=== PATIENT | male | born 1925 | race African-American/Black ===

== ENCOUNTER 2016-09-07 09:32 | Inpatient (IN) | payer MEDICARE, OTHER ==
--- NOTE | ~2016-09-07 | CO ---
Unit #: [id number] #: [id number] Patient: FERCHO RYAN [id number] [address] [place], [place] [address] [id number] I MR#: [id number] NAME: FERCHO RYAN ROOM: 227 Age: 89 Sex: M Admission Date: 09/07/2016 : 1925 Attending Physician: Adilene Gutierrez M.D. Primary Care Physician: No Primary Care Physician CONSULTATION REPORT CHIEF COMPLAINT Most likely stage 4 prostate cancer, widespread disease in the bone and the lymph node. HISTORY OF PRESENT ILLNESS This 89-year-old male, who came to the hospital with significant back pain, unable to walk. He has decreased p.o. intake, decline in performance status. He has difficulty urinating for a couple of years. He has not seen any physician recently. Last year he had right upper extremity fracture requiring titanium miguel. At present, he is complaining of significant pain. The patient had a CT of the abdomen and pelvis on 09/07/2016. There is a 7.3 x 6.7 cm enlargement of the prostate. There is a retroperitoneal lymph node measuring 2.4 x 1.2 cm. In the right inguinal area, there is a 4.5 x 3.7 cm mass. He had a CT of the chest on 09/07/2016. Again, widespread bony mets. There are no lung nodules. Today, CBC shows WBC 4.3, hemoglobin 7.6, MCV 94, platelet 157, creatinine 2.2. Alkaline phos. 525. At present, he is sleepy because of pain medication. REVIEW OF SYSTEMS CONSTITUTIONAL: No fever, no chills, no sweats, no weight loss. EYES: No visual symptoms. EARS, NOSE AND THROAT: There is no runny nose or sore throat or difficulty hearing. CARDIOVASCULAR: No chest pain. No shortness of breath. No palpitations. No orthopnea. No PND. RESPIRATORY: No cough. No wheezing. No hemoptysis. GASTROINTESTINAL: No nausea, vomiting, diarrhea, constipation, hematochezia or melena. GENITOURINARY: No urinary frequency, hesitancy or urgency. No blood in the urine. MUSCULOSKELETAL: No muscle or joint pain. NEUROLOGIC: No headache. No numbness or tingling. No weakness. No seizure. PSYCHIATRIC: No anxiety, depression or mood disturbance. ENDOCRINE: No excessive urination or thirst. DERMATOLOGIC: No rash or change in the skin. ALLERGIC/IMMUNOLOGIC: No symptoms. HEMATOLOGIC/LYMPHATIC: Denies any symptoms. Unit #: [id number] #: [id number] Patient: FERCHO RYAN Significant decline in performance status, bone pain, urinary obstruction. PAST MEDICAL HISTORY 1. Now most likely stage 4 prostate cancer with anemia. 2. Renal failure. ALLERGIES None. SOCIAL HISTORY No smoking, no alcohol, no drugs. He is a retired dancer. SURGICAL HISTORY Right upper extremity fracture with titanium miguel placed. FAMILY HISTORY Negative for cancer. PHYSICAL EXAMINATION GENERAL: Patient is comfortable. ECOG is 0. The patient is pleasant. VITAL SIGNS: Afebrile. O2 sat 100%. Pulse 90, respiratory rate 20, blood pressure 152/81. HEENT: Moist mucosa. Pupils equally reactive to light. Extraocular muscles intact. Sclerae anicteric. No obvious bleeding from nasal mucosa or oral mucosa. Scalp normal. Hearing normal. NECK: No JVD. No lymphadenopathy. LYMPHATIC/HEMATOLOGIC: There is no palpable adenopathy in the neck, axilla or inguinal area. CARDIOVASCULAR: S1, S2. Regular rate and rhythm. No S3 or S4. RESPIRATORY: Chest symmetrical, normal. Clear to auscultation bilaterally. No wheezes, no rales, no rhonchi. No dullness to percussion. ABDOMEN/GASTROINTESTINAL: Abdomen is soft, nontender, nondistended. No hepatosplenomegaly. EXTREMITIES: There is no clubbing, no cyanosis, no edema. No varicose veins. NEUROLOGICAL: Patient is alert, awake and oriented x3. Cranial nerves II-XII are intact. Sensory grossly intact. Motor is 4/5 in all four extremities. Gait is normal. Station is normal. Language is normal. Memory is normal. DTRs +2 in all four extremities. MUSCULOSKELETAL: No joint swelling. No bony tenderness. No muscle tenderness. SKIN: No petechiae, no rash, no ecchymosis. PSYCHIATRIC: No anxiety. No delusions or hallucinations. There is no agitation. Eye contact is normal. Affect is appropriate. There is no flight of ideas. ASSESSMENT AND PLAN This 89-year-old male has the following active issues: 1. Prostate cancer: Patient has widespread bony mets. He has a very enlarged prostate causing obstruction and renal failure. He has significant lymphadenopathy. I had an extensive discussion with patient's , who is from [place], and family members. I will get CT guided biopsy of the right inguinal mass. Will ask urologist to see regarding his obstruction leading to renal failure. Will check PSA level. Will discuss with the family again. 2. Anemia: Will check iron studies. 3. Renal: This is most likely due to obstruction. It will improve. 4. (1) : Patient has decline in performance status. Will Unit #: [id number] #: [id number] Patient: FERCHO RYAN work with the family. In the future, I may consider giving him Casodex, Zometa, Lupron. This all depends on the patient and the family. Dictated by... Sam Priest/boom TD: 09/08/2016 13:22 JOB #: [id number] CONSULTATION REPORT Page 1 of 1 X Isabel Molina MD CONSULTATION REPORT
--- NOTE | ~2016-09-07 | CT55 ---
[facility] A Service of [facility] & [facility] RADIOLOGY TEXT RESULTS PATIENT: FERCHO RYAN LOCATION: C2A 227-01 : [birth year] UNIT #: [id number] AGE: [address]: Adilene Gutierrez MD SEX: M ORDER DR: [id number] [facility] [address] [facility]. [place], [place] [address] [id number] I MR#: [id number] Acc #: [id number] NAME: FERCHO RYAN : 1925 SEX: M STUDY DATE/TIME: 09/07/2016 17:25 UNIT: [facility] ROOM: [facility] STUDY DESCRIPTION: CT Chest W Con Attending Physician: Adilene Gutierrez M.D. Referring Physician: Alex Self Referred Ordering Physician: Adilene Gutierrez M.D. Primary Care Physician: No Primary Care Physician MEDICAL IMAGING REPORT This report is preliminary unless electronic signature is present EXAM CT chest with contrast. INDICATIONS Low back pain. Pain radiating down to bilateral lower extremities for 2 weeks. Upper back and chest pain. Metastatic disease at L5. TECHNIQUE CT of the chest with IV contrast (100 mL Isovue-370 IV contrast). Coronal and sagittal reconstructions were obtained. This CT exam was performed with one or more of the following radiation dose reduction techniques: automatic exposure control, adjustment of mA and/or kV according to patient size, and iterative reconstruction. COMPARISON Lumbar spine radiographs dated 09/07/[address] abdomen and pelvis dated 09/07/2016. FINDINGS No pathologically enlarged mediastinal or hilar lymph nodes. No pericardial or pleural effusion. There is a small pleural nodule in the anterior right hemithorax measuring 0.6 cm. There is some linear atelectasis in the left lower lobe. There is diffuse osseous metastatic disease throughout the axial skeleton. No evidence of a pathologic fracture. There is an expansile metastatic focus in the left posterolateral ninth rib measuring 3.5 x 2.8 cm. Several other expansile rib lesions are noted. IMPRESSION 1. Development of diffuse osseous metastatic disease throughout the axial skeleton. 2. Small 6-mm pleural nodule in the anterior right hemithorax is STS. [facility] A Service of [facility] & [facility] RADIOLOGY TEXT RESULTS PATIENT: FERCHO RYAN LOCATION: [place] [address] : [birth year] UNIT #: [id number] AGE: [address]: Adilene Gutierrez MD SEX: M ORDER DR: indeterminate. Dictated by... Bob Culver M.D. THIS IS AN ELECTRONICALLY VERIFIED REPORT Bob Culver M.D. at 09/07/2016 9:46 PM CITLALY/roc TD: 09/07/2016 18:42 JOB #: [id number] MEDICAL IMAGING REPORT Page 1 of 1 COPY
--- NOTE | ~2016-09-07 | CT2 ---
[facility] A Service of [facility] & [facility] RADIOLOGY TEXT RESULTS PATIENT: FERCHO RYAN LOCATION: C2A 227-01 : [birth year] UNIT #: [id number] AGE: [address]: Adilene Gutierrez MD SEX: M ORDER DR: [id number] [facility] [address] [facility]. [place], [place] [address] [id number] I MR#: [id number] Acc #: [id number] NAME: FERCHO RYAN : 1925 SEX: M STUDY DATE/TIME: 09/07/2016 17:25 UNIT: C2A ROOM: 227 STUDY DESCRIPTION: CT Abd and Pelv W Cont Attending Physician: Adilene Gutierrez M.D. Referring Physician: Alex Self Referred Ordering Physician: Adilene Gutierrez M.D. Primary Care Physician: No Primary Care Physician MEDICAL IMAGING REPORT This report is preliminary unless electronic signature is present EXAM Abdomen and pelvis CT with contrast HISTORY Low back pain radiating to both lower extremities for the past 2 weeks with upper back and abdominal pain. Abnormal lumbar vertebrae on plain films. TECHNIQUE Axial images were obtained with intravenous contrast. 100 mL of Isovue was used. This CT exam was performed with one or more of the following radiation dose reduction techniques: automatic control, adjustment of mA and/or kV according to patient size, and iterative reconstruction. FINDINGS Multiple well-circumscribed small low-density liver lesions are seen consistent with simple hepatic cysts. No suspicious liver masses are seen. There is also a small cyst or hemangioma in the mid spleen measuring 1 cm in diameter. The kidneys, adrenals and pancreas are unremarkable. Mildly prominent retroperitoneal lymph nodes are seen to the left of the aorta. The largest measures 2.4 x 1.2 cm. No distended bowel loops are seen. The prostate gland is markedly enlarged irregular and lobular. It measures approximately 7.3 x 6.7 cm in transverse diameter. Additionally, there is mass in the right lower quadrant located between the bladder and the right common femoral artery just below the cecum. It measures 4.5 x 3.7 cm in transverse diameter. The bony architecture is markedly abnormal. There are multiple sclerotic lesions seen throughout the spine, sacrum and both proximal femurs. Constellation of findings is most suggestive of prostate cancer with widespread metastatic disease. No retropulsed bone fragments are seen back into the spinal canal. No definite pathologic fractures are noted. IMPRESSION STS. [facility] A Service of [facility] RADIOLOGY TEXT RESULTS PATIENT: FERCHO RYAN LOCATION: C2A 227-01 : [birth year] UNIT #: [id number] AGE: [address]: Adilene Gutierrez MD SEX: M ORDER DR: Widespread osteoblastic lesions throughout the skeleton consistent with widespread metastatic prostate cancer. The prostate gland is markedly enlarged and lobular and there is an additional soft tissue mass in the right side of the pelvis located just lateral to the bladder that is suspicious for a metastatic adenopathy from prostate cancer. There is a mildly prominent retroperitoneal lymph node to the left of the abdominal aorta also suspicious. Dictated by... Kameron Fernandez M.D. THIS IS AN ELECTRONICALLY VERIFIED REPORT Kameron Fernandez M.D. at 09/09/2016 12:41 PM HEATHER/dioni TD: 09/07/2016 18:51 JOB #: [id number] MEDICAL IMAGING REPORT Page 1 of 1 COPY
--- NOTE | ~2016-09-07 | EKG ---
PATIENT: FERCHO RYAN UNIT #: [id number] Ventricular Rate: 103 BPM Atrial Rate: 103 BPM P-R Interval: 190 ms QRS Duration: 84 ms Q-T Interval: 342 ms QTC Calculation(Bezet): 448 ms P Underwood: 49 degrees Calculated R Underwood: -30 degrees Calculated T Underwood: 60 degrees Diagnosis Line: Sinus tachycardia with occasional Premature Diagnosis Line: ventricular complexes Diagnosis Line: Left axis deviation Diagnosis Line: Abnormal ECG Diagnosis Line: When compared with ECG of 05-FEB-2016 16:12, Diagnosis Line: Premature ventricular complexes are now Present Diagnosis Line: NH interval has decreased Diagnosis Line: Vent. rate has increased BY 41 BPM Diagnosis Line: Nonspecific T wave abnormality has replaced Diagnosis Line: inverted T waves in Anterior leads Diagnosis Line: Confirmed by FRIDA RHOADES MD ([id number]) on 09/08/2016 Diagnosis Line: 10:38:11 AM INTERPRETING MD: VERONA MARTINES
--- NOTE | ~2016-09-07 | CO ---
Unit #: [id number] #: [id number] Patient: FERCHO RYAN [id number] [address] [address] [id number] I MR#: [id number] NAME: FERCHO RYNA ROOM: 227 Age: 89 Sex: M Admission Date: 09/07/2016 : 1925 Attending Physician: Adilene Gutierrez M.D. Primary Care Physician: No Primary Care Physician Consultation Date: 09/08/2016 CONSULTATION REPORT REASON FOR CONSULTATION Metastatic prostate cancer, urinary retention, urinary tract infection. HISTORY This 89-year-old man was admitted yesterday with a chief complaint of back pain described as starting 4 days before admission. According to his son, he has been struggling for 10 days or so with walking, and according to his , he has had difficulty with urinary frequency and urinary incontinence for weeks to months. He himself is just complaining of back pain, in bed and cannot seem to get comfortable. He has been seen by oncology with evaluation, as noted below. He has no prior urologic history. PAST MEDICAL HISTORY Limited to arthritis, anemia, grade 1 diastolic dysfunction. SURGERIES Left arm surgery, right humeral nail January 2016. MEDICATIONS Admission medications - none. He has been started on Rocephin. ALLERGIES None known. FAMILY HISTORY Negative for prostate cancer. SOCIAL HISTORY Never smoked. Does not use alcohol or drugs. . REVIEW OF SYSTEMS Difficult due to patient's pain but absence of weakness, numbness or tingling of lower extremities significant. No headache or visual changes documented elsewhere. PHYSICAL EXAMINATION GENERAL: On examination, patient is very uncomfortable, thin, awake, alert, responsive. HEENT: Unremarkable. LUNGS: Clear. CARDIAC: Rate and rhythm regular. ABDOMEN: Abdomen is thin, soft. Palpable iliac node and massive bladder distension. : Phallus normal, circumcised. Testes normal, distended. Digital Unit #: [id number] #: [id number] Patient: FERCHO RYAN deferred. DIAGNOSTIC STUDIES LABORATORY: PSA greater than 156. BUN 48, creatinine 2.8. Urinalysis consistent with urinary infection. Urine culture is pending. X-RAYS: CT scan of the abdomen with IV contrast shows normal kidneys without obstruction but a massively distended bladder exceeding the lower level of the kidneys (1) stent. Massive prostate gland, huge right iliac node and multiple bony metastases. IMPRESSION 1. Widespread metastatic prostate cancer with severely symptomatic bony metastases. 2. Urinary retention, for which I prepped and draped him, placed a 16 Balbuena catheter without difficulty, yielding a large volume of urine. 3. Urinary tract infection, on Rocephin. PLAN Agree with plans for node biopsy tomorrow with systemic hormonal and bone protective treatments as soon as possible per oncology. Thank you for the consultationLillie. Will follow with you. Dictated by... Sam Erickson/napoleon TD: 09/09/2016 08:58 JOB #: [id number] CC: Isabel Molina M.D. CONSULTATION REPORT Page 1 of 1 X Kameron Miller MD X CONSULTATION REPORT
--- NOTE | ~2016-09-07 | CR181 ---
[facility] A Service of [facility] & [facility] RADIOLOGY TEXT RESULTS PATIENT: FERCHO RYAN LOCATION: [facility] 227-01 : [birth year] UNIT #: [id number] AGE: [address]: Adilene Gutierrez MD SEX: M ORDER DR: [id number] [place] [address] [facility]. [place], [place] [address] [id number] E MR#: [id number] Acc #: [id number] NAME: FERCHO RYAN : 1925 SEX: M STUDY DATE/TIME: 09/07/2016 UNIT: [facility] ROOM: STUDY DESCRIPTION: CR Lumbar Spine 2 or 3 Views Attending Physician: Arnav Azevedo M.D. Referring Physician: Self Referral-Refer Use Only Ordering Physician: Arnav Azevedo M.D. Primary Care Physician: Primary Care Physician No MEDICAL IMAGING REPORT This report is preliminary unless electronic signature is present EXAM Lumbar spine series 09/07/2016 13:31 hours HISTORY 89-year-old man complaining of 4-day history of low back pain. COMPARISON Bone survey 02/08/2016 FINDINGS AP and lateral views of the lumbar spine and a cone lateral view of the lumbosacral junction were performed. The lumbar spine is normally aligned. There is no acute fractures seen. There is a mottled appearance to the L5 and the sacrum representing a change from the bone survey of 02/08/2016 concerning for metastatic disease. IMPRESSION There is no definite acute fracture or subluxation of the lumbar spine. There is slight increase in sclerosis of the lower lumbar vertebral bodies and the sacrum, right greater than left as compared to the bone survey of 02/08/2016. This interval changes concerning for possible new metastatic disease to bone. Correlate clinically. Dictated by... Peyton Min M.D. THIS IS AN ELECTRONICALLY VERIFIED REPORT Peyton Mni M.D. at 09/08/2016 9:30 AM YANDYM/ottoniel TD: 09/07/2016 14:37 JOB #: [id number] [place] [address] A Service of [facility] & [facility] RADIOLOGY TEXT RESULTS PATIENT: FERCHO RYAN LOCATION: [facility] 227-01 : [birth year] UNIT #: [id number] AGE: [address]: Adilene Gutierrez MD SEX: M ORDER DR: MEDICAL IMAGING REPORT Page 1 of 1 COPY
--- NOTE | ~2016-09-07 | DS ---
Unit #: [id number] #: [id number] Patient: FERCHO RYAN [id number] [address] [address] [id number] I MR#: [id number] NAME: FERCHO RYAN ROOM: 227 Age: 89 Sex: M Admission Date: 09/07/2016 : 1925 Discharge Date: Attending Physician: Adilene Gutierrez M.D. DISCHARGE SUMMARY DISCHARGE DIAGNOSES 1. Metastatic prostate cancer with metastasis to bone. 2. Severe acute back pain secondary to bony metastasis. 3. Anemia, acute on chronic, iron deficiency. 4. Urinary tract infection. 5. Acute kidney injury most probably from urinary retention, also probably from contrast-induced nephropathy. 6. Urinary retention with Balbuena catheter. 7. Hypophosphatemia. 8. Mild protein malnutrition. 9. Toxic metabolic encephalopathy. 10. History of arthritis. 11. History of fall with right humeral fracture. 12. Grade I diastolic dysfunction, chronic. 13. Underweight with moderate calorie malnutrition. 14. Metabolic acidosis. 15. Functional immobility. 16. Occult blood positive. CONSULTATIONS 1. Dr. Mendosa 2. Dr. Miller 3. Dr. Molina PROCEDURES Patient had an iliac lymph node biopsy. 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 ALLERGIES None. DISCHARGE MEDICATIONS 1. Lortab 5 mg q.4 p.r.n. pain. 2. Morphine 1 mg IV q.4 p.r.n. pain. HOSPITAL COURSE An 89-year-old admitted because of severe back pain. Metastatic prostate cancer stage IV with bony metastasis with severe back pain. Patient is immobile and needing IV morphine. Patient was seen by urologist and Dr. Molina. The family wanted hospice, so currently, inpatient hospice has been ordered and waiting on bed availability. Patient will be transferred to inpatient hospice bed once a bed is available. Unit #: [id number] #: [id number] Patient: FERCHO RYAN Acute kidney injury with hypophosphatemia. Patient received IV fluids, and currently creatinine is 1.6. Mild protein malnutrition with moderate calorie malnutrition and underweight. Patient received dietary instructions as needed. Anemia, acute on chronic, iron deficiency. Patient was seen by Gastroenterology. Because of the poor prognosis, no endoscopy has been ordered. Toxic metabolic encephalopathy most likely from narcotics. Discussed with Miladis Cisneros. She is her living partner and has power of waist presser. She agrees with hospice. Dr. Molina and Dr. Meeks agree with hospice once the family agrees. Very poor prognosis. Patient is Do Not Resuscitate. Transfer to inpatient hospice once bed available. Discharge time take is 40 minutes. Dictated by... Sam Lee/deric TD: 09/13/2016 16:35 JOB #: [id number] DISCHARGE SUMMARY Page 1 of 1 X Adilene Gutierrez MD X DISCHARGE SUMMARY
--- NOTE | ~2016-09-07 | HP ---
Unit #: [id number] #: [id number] Patient: FERCHO RYAN [id number] [address] [place], [place] [address] [id number] E MR#: [id number] NAME: FERCHO RYAN ROOM: Age: 89 Sex: M Admission Date: 09/07/2016 : 1925 Attending Physician: Arnav Azevedo M.D. Referring Physician: Self Referral-Refer Use Only Primary Care Physician: No Primary Care Physician HISTORY AND PHYSICAL CHIEF COMPLAINT Back pain. HISTORY OF PRESENT ILLNESS This is an 89 year old with a history of arthritis, admitted because of back pain. According to him, it started four days prior to the admission, mostly in the mid back, currently it is 10/10, radiating to his front of his chest, aggravated with movement, relieved after pain medication. No dizziness. No syncope. No nausea, vomiting, diarrhea or constipation. No fever. No chills. No leg swelling. No skin rash. PAST MEDICAL HISTORY 1. History of arthritis. 2. Patient had fall in January 2016 for which he had a right humeral fracture treated as intramedullary nailing. 3. Also patient has grade I diastolic dysfunction. 4. Patient has history of falls. 5. History of anemia. PAST SURGICAL HISTORY 1. History of intramedullary nailing of the right humerus in January 2016. 2. History of left arm surgery. ALLERGIES None. CURRENT HOME MEDICATIONS None SOCIAL HISTORY No smoking, no alcohol, no drugs. FAMILY HISTORY Negative for coronary artery disease. REVIEW OF SYSTEMS No headache. No visual changes. No weakness, numbness, tingling. Reviewed 12-point systems with him which is negative except as in HPI. PHYSICAL EXAMINATION VITAL SIGNS: Temperature 98.8. Pulse 118. Respiration 17. Blood pressure 181/76. BMI of 19. Unit #: [id number] #: [id number] Patient: FERCHO RYAN GENERAL EXAMINATION: An 89 year old lying in bed with moderate distress secondary to pain. HEENT: Pupils equally reactive to light and accommodation. Dry mucosa present. NECK: Supple. HEART: S1, S2, heard. Regular rhythm. LUNGS: Clear to auscultation. No crackles. No rhonchi. ABDOMEN: Soft, nontender. Bowel sounds are present. EXTREMITIES: No pedal edema. SKIN: No rash. NEUROLOGICALLY: Moving all extremities. BACK EXAMINATION: Mildly tender in the mid back area. DIAGNOSTIC STUDIES LABORATORY DATA: Sodium 140, potassium 3.9, carbon dioxide 19, creatinine 1.2, WBC 4.4, hemoglobin 7.7, platelets 161. Urinalysis shows leukocyte esterase 1+, RBCs 10 to 25, WBCs 50 to 100. IMAGING: X-ray of the lumbar spine shows no acute fracture. Slight increase in sclerosis of lower lumbar vertebral bodies concerning for possible new metastatic disease of the bone. ASSESSMENT AND PLAN 1. Acute back pain: Rule out metastatic cancer with metastatic bone lesion with a severe functional immobility. Patient is receiving IV Dilaudid. Patient could not go to MRI secondary to severe pain. Wait for the pain to get better and repeat MRI. 2. Rule out metastatic cancer: I am going to do CT scan of the abdomen and pelvis and thorax and do a CEA level because of anemia. 3. Anemia, likely iron deficiency: Rule out GI bleed. Patient does have occult blood positive. I am going to ask Dr. Harley to see and transfuse if needed. Also, Dr. Molina to see for metastatic disease. 4. Urinary tract infection: Cultures are pending. I am going to give him Rocephin 1 g IV daily and blood cultures. 5. Hypertension, uncontrolled: Metoprolol has been added. 6. Chronic diastolic heart failure, stable. 7. Patient is underweight with moderate calorie malnutrition. 8. Waiting on family members to show up so I can discuss with them. Dictated by Sam Lee/maddie TD: 09/07/2016 17:16 JOB #: [id number] Unit #: [id number] #: [id number] Patient: FERCHO RYAN HISTORY AND PHYSICAL Page 1 of 1 X Adilene Gutierrez MD X HISTORY AND PHYSICAL
--- NOTE | ~2016-09-07 | CO ---
Unit #: [id number] #: [id number] Patient: FERCHO RYAN [id number] [address] [place], [place] [address] [id number] MR#: [id number] NAME: FERCHO RYAN ROOM: 227 Age: 89 Sex: M Admission Date: 09/07/2016 : 1925 Attending Physician: Adilene Gutierrez M.D. Primary Care Physician: Primary Care Physician No Consultation Date: 09/09/2016 CONSULTATION REPORT REASON FOR CONSULTATION Renal failure. Thank you very much for asking me to see this patient in consultation. HISTORY OF PRESENT ILLNESS Mr. Fercho Ryan is an 89-year-old male, who presented to the hospital on 09/07/2016 with apparently increased back pain, decreased ambulation, chronic increased frequency upon urination, decreased p.o. intake. Subsequently, he was noted upon presentation to have a creatinine of 1.2, it was up to 2.2 yesterday and up to 2.5 today. Since admission, he did undergo CT scan with contrast, IV of his chest and abdomen and pelvis showing multiple skeletal lesions and enlarged prostate and felt to have probably metastatic prostate CA, underwent biopsy today. He was started on chemotherapy today of Casodex, Aredia, and was ordered Firmagon subcu x1 today. Currently, the patient is arousable. He is alert, but confused. He has pain in his back. He denies any headaches, cough, shortness of breath, chest pain. No nausea or vomiting. No severe abdominal pain. No lower extremity swelling, but again he is confused. PAST MEDICAL HISTORY History of arthritis, unknown if he took any nonsteroidals at home or not; history of anemia; history of right upper extremity fracture and miguel last year. ALLERGIES No known drug allergies. SOCIAL HISTORY He does not smoke or drink. MEDICATIONS Currently include Lovenox, Protonix, Lopressor, Rocephin, chemos as mentioned above. He was given Lasix x1 dose today as well. FAMILY HISTORY Unable to obtain. REVIEW OF SYSTEMS As mentioned in the HPI. PHYSICAL EXAMINATION GENERAL: He is alert and confused. VITAL SIGNS: Temperature is 98.6, pulse 78 to 96, blood pressure 111 to Unit #: [id number] #: [id number] Patient: FERCHO RYAN over 58 to 74. He has had 260 in and 1800 out. He does have a Balbuena catheter with large amount of urine. HEENT: Normocephalic and atraumatic. His pupils are equal, round, and reactive to light. Extraocular muscles are intact. Hearing appears to be fairly normal. Mouth is clear. No erythema. No exudate. NECK: Supple. No adenopathy. CARDIAC: Appears to have a regular rhythm without a rub. No S3 or S4. LUNGS: Clear bilaterally. No wheezes, rhonchi, or rales. ABDOMEN: Bowel sounds positive. Nontender. Soft. EXTREMITIES: He has no significant lower extremity swelling. His pulses are intact in upper and lower extremities. JOINTS: No joint pain or joint swelling. SKIN: No acute rashes. NEUROLOGIC: He is alert, but confused. He is able to move all extremities. : Balbuena catheter is in place perales. DIAGNOSTIC STUDIES LABORATORY RESULTS: Today shows sodium of 139; potassium 3.7, chloride is 106, bicarb is 17, BUN is 60, creatinine 2.5, glucose 111, calcium is 8.9, magnesium is 2.2, albumin is 380. He did have increased liver function tests. His hemoglobin is now 7.3, white count 2600, platelets 134,000. PSA was 156. His UA shows specific gravity of 1.06 when he came in, 2+ protein, 10 to 25 rbc's, 50 to 100 wbc's, has positive bacteria. IMAGING STUDIES: CT scan of the chest, abdomen, and pelvis with contrast was noted. ASSESSMENT AND PLAN 1. Acute kidney injury. This gentleman with increasing BUN and creatinine, although his CT did not show obstruction. He certainly appears to have a large urine output with a Balbuena in which still remains in. He also has had worsening creatinine and it is probably large component of contrast-induced nephropathy. He was probably a little volume depleted when he came in with creatinine of 1.2, received doses of IV contrast and probably have, hopefully, temporary renal insufficiency from this. I agree with IV fluids, but due to his acidosis, we will add a bicarb drip. We will check CPK, uric acid, CMP, magnesium, and phosphorus in a.m. We will check urine eosinophils. Rule out acute interstitial nephritis, urine sodium. We will repeat the urine culture depending on what all this shows, depending on what further workup and treatment. Due to the risk of acute renal failure from PPIs, we will discontinue his Protonix and place him over on Pepcid. We will continue to follow. Currently, there is no family in the room and I was unable to explain to the patient fully. 2. Probable metastatic prostate cancer, undergoing chemo, started today. Dictated by.Sam Chávez/gerda TD: 09/10/2016 02:32 JOB #: [id number] Unit #: [id number] #: [id number] Patient: FERCHO RYAN CONSULTATION REPORT Page 1 of 1 X Camille Mendosa MD X CONSULTATION REPORT
--- NOTE | ~2016-09-07 | CT134 ---
[facility] A Service of [facility] RADIOLOGY TEXT RESULTS PATIENT: FERCHO GUERRERO LOCATION: C2A 227- : [birth year] UNIT #: [id number] AGE: [address]: Adilene Gutierrez MD SEX: M ORDER DR: [id number] [facility]. [place], [place] [address] [id number] MR#: [id number] Acc #: [id number] NAME: FERCHO GUERRERO : 1925 SEX: M STUDY DATE/TIME: 09/09/2016 9:58 UNIT: C2A ROOM: 227 STUDY DESCRIPTION: CT Guide Attending Physician: Adilene Gutierrez M.D. Referring Physician: Self Referral-Refer Use Only Ordering Physician: Adilene Gutierrez M.D. Primary Care Physician: Primary Care Physician No MEDICAL IMAGING REPORT This report is preliminary unless electronic signature is present EXAM CT-guided external iliac node biopsy Mr. Guerrero is an 89-year-old gentleman who has suspected widespread metastatic prostate cancer. This includes extensive osseous metastases as well as a large right external iliac chain node and has been referred for biopsy. PROCEDURE There risks, benefits, and alternatives to the procedure were explained to the patient, and a signed, informed consent was obtained. He is placed supine on the CT scanner gantry, and a preliminary CT scan was performed from the region of interest in the appropriate site overlying the patient's right external iliac node was selected. The overlying skin was marked. Patient is prepped and draped usual sterile fashion. Time-out was performed as per protocol. Skin and subcutaneous tissues were anesthetized with buffered lidocaine. Anesthesia needle was left in place. Repeat CT scan showed that my trajectory was too far superior and subsequently repositioned more inferiorly. At this point, I was satisfied with the trajectory and exchanged for 17-gauge core axial needle which was advanced into the inferior aspect of the node. Final CT scan confirmed appropriate position of the needle and, at this point, 3 core samples were obtained using an 18-gauge BioPince biopsy gun. Needle was then removed and manual pressure was applied. No hemostasis was obtained. Patient did receive conscious sedation. Consisting of 4 mg of Versed over her which micrograms of Fentanyl and continuous monitoring was provided for 90 minutes by the IVR nurse. IMPRESSION Technically successful CT-guided right external iliac node biopsy. CT was used during the procedure and permanent images were saved. [facility] A Service of [facility] RADIOLOGY TEXT RESULTS PATIENT: FERCHO GUERRERO LOCATION: [facility] 227-01 : [birth year] UNIT #: [id number] AGE: [address]: Adilene Gutierrez MD SEX: M ORDER DR: Dictated by... Chrissy Lam M.D. THIS IS AN ELECTRONICALLY VERIFIED REPORT Chrissy Lam M.D. at 09/12/2016 4:48 PM AFF/aa TD: 09/12/2016 08:26 JOB #: [id number] MEDICAL IMAGING REPORT Page 1 of 1 COPY
[~2016-09-07 09:32] MED LIST: NORCO 10/3251 TAB PO
[2016-09-07 10:39] LABS: BASOPHIL% 0.7 % (0-2.5); DIFF IND YES; EOSINOPHIL% 0.1 % (0.0-7.0); HEMATOCRIT 23.5 % (38.0-50.0); HEMOGLOBIN 7.7 gm/dL (13.0-16.0); LYMPHOCYTE# 0.9 X10e3 (1.0-3.5); LYMPHOCYTE% 20.6 % (17.0-45.0); MEAN CELL VOLUME 88.9 FL (83-96); MEAN CORPUSCULAR HEMOGLOBIN 29.1 PG (28-34); MEAN CORPUSCULAR HGB CONC 32.8 g/dL (30-36); MEAN PLATELET VOLUME 6.2 FL (6.5-11.5); MONOCYTE# 0.3 X10e3 (0-1.0); NEUTROPHIL# 3.2 X10e3 (1.5-7.1); NEUTROPHIL% 72.6 % (40-75); PLATELET COUNT 161 X10e3 (140-420); RED BLOOD COUNT 2.65 X10e (3.90-5.60); RED CELL DISTRIBUTION WIDTH 21.7 % (11.0-15.5); WHITE BLOOD COUNT 4.4 X10e3 (4.0-10.5)
[2016-09-07 11:00] LABS: BUN/CREATININE RATIO 24.16; CALCIUM SERUM 9.8 mg/dL (8.4-10.2); CREATININE SERUM 1.2 mg/dL (0.6-1.4); GLOM FILT RATE Estimated 61.8 mL/min (>60); POTASSIUM 3.9 mmol/L (3.5-5.1)
[2016-09-07 11:18] LABS: NUCLEATED RED BLOOD CELL 3 /100 (0); PLATELET ESTIMATE NORMAL (NORMAL); POLYCHROMASIA SL; RBC NORMAL YES
[2016-09-07 11:19] LABS: ANISOCYTOSIS MOD; OVALOCYTES PRESENT; POIKILOCYTOSIS SL; TEAR DROP CELLS PRESENT
[2016-09-07 13:12] LABS: URINE SOURCE CLEAN CATCH
[2016-09-07 13:30] LABS: URINE APPEARANCE CLOUDY; URINE BILIRUBIN NEG (NEG); URINE BLOOD 2+ (NEG); URINE COLOR YELLOW; URINE GLUCOSE 100 MG/DL (NEG); URINE KETONE TRACE (NEG); URINE LEUKOCYTE ESTERASE 1+ (NEG); URINE NITRATE NEG (NEG); URINE PROTEIN 2+ (NEG); URINE SPECIFIC GRAVITY 1.016 (1.003-1.035); URINE UROBILINOGEN 0.2 MG/DL (NEG)
[2016-09-07 13:32] LABS: CULTURE INDICATED? YES; URINE SQUAMOUS EPITHELIAL CELL MANY /[HPF]; UWBCS1 AUWI 50-100 (0-5)
[2016-09-07 13:45] LABS: URINE AMORPHOUS SEDIMENT AMORP URATES; URINE BACTERIA AUWI 1+ (NEGATIVE)
[2016-09-08 06:25] LABS: HEMATOCRIT 23.4 % (38.0-50.0); HEMOGLOBIN 7.6 gm/dL (13.0-16.0); MEAN CORPUSCULAR HEMOGLOBIN 30.6 PG (28-34); MEAN CORPUSCULAR HGB CONC 32.3 g/dL (30-36); MEAN PLATELET VOLUME 7.2 FL (6.5-11.5); RED BLOOD COUNT 2.47 X10e (3.90-5.60); RED CELL DISTRIBUTION WIDTH 22.3 % (11.0-15.5); WHITE BLOOD COUNT 4.3 X10e3 (4.0-10.5)
[2016-09-08 06:26] LABS: MEAN CELL VOLUME 94.7 FL (83-96)
[2016-09-08 07:17] LABS: ALBUMIN SERUM 4.2 g/dL (3.5-5.0); BILIRUBIN,TOTAL 1.6 mg/dL (0.2-2.0); BUN/CREATININE RATIO 21.81; CALCIUM SERUM 9.2 mg/dL (8.4-10.2); CREATININE SERUM 2.2 mg/dL (0.6-1.4); GLOM FILT RATE Estimated 29.7 mL/min (>60); POTASSIUM 4.7 mmol/L (3.5-5.1); PROTEIN TOTAL SERUM 6.6 g/dL (6.0-8.3)
[2016-09-09 06:11] LABS: HEMATOCRIT 22.3 % (38.0-50.0); HEMOGLOBIN 7.3 gm/dL (13.0-16.0); MEAN CORPUSCULAR HEMOGLOBIN 29.3 PG (28-34); MEAN CORPUSCULAR HGB CONC 32.6 g/dL (30-36); MEAN PLATELET VOLUME 6.9 FL (6.5-11.5); RED BLOOD COUNT 2.48 X10e (3.90-5.60); RED CELL DISTRIBUTION WIDTH 22.3 % (11.0-15.5); WHITE BLOOD COUNT 2.6 X10e3 (4.0-10.5)
[2016-09-09 06:20] LABS: INR 1.3; PARTIAL THROMBOPLASTIN TIME 26.8 SECONDS (23.5-31.3); PROTHROMBIN TIME (PATIENT) 13.4 SECONDS (9.6-11.5)
[2016-09-09 06:21] LABS: MEAN CELL VOLUME 89.8 FL (83-96)
[2016-09-09 06:51] LABS: FERRITIN >1500 ng/mL (24-336)
[2016-09-09 07:26] LABS: ALBUMIN SERUM 3.8 g/dL (3.5-5.0); BILIRUBIN,TOTAL 1.3 mg/dL (0.2-2.0); CALCIUM SERUM 8.9 mg/dL (8.4-10.2); CREATININE SERUM 2.5 mg/dL (0.6-1.4); GLOM FILT RATE Estimated 25.4 mL/min (>60); MAGNESIUM 2.2 mg/dL (1.6-3.0); POTASSIUM 3.7 mmol/L (3.5-5.1); PROTEIN TOTAL SERUM 6.2 g/dL (6.0-8.3)
[2016-09-10 05:49] LABS: HEMOGLOBIN 8.7 gm/dL (13.0-16.0); MEAN CELL VOLUME 90.1 FL (83-96); MEAN CORPUSCULAR HEMOGLOBIN 30.1 PG (28-34); MEAN CORPUSCULAR HGB CONC 33.4 g/dL (30-36); MEAN PLATELET VOLUME 6.8 FL (6.5-11.5); RED BLOOD COUNT 2.88 X10e (3.90-5.60); RED CELL DISTRIBUTION WIDTH 19.9 % (11.0-15.5); WHITE BLOOD COUNT 3.4 X10e3 (4.0-10.5)
[2016-09-10 06:34] LABS: ALBUMIN SERUM 3.5 g/dL (3.5-5.0); BILIRUBIN,TOTAL 1.7 mg/dL (0.2-2.0); BUN/CREATININE RATIO 24.54; CALCIUM SERUM 8.7 mg/dL (8.4-10.2); CREATININE SERUM 2.2 mg/dL (0.6-1.4); GLOM FILT RATE Estimated 29.7 mL/min (>60); MAGNESIUM 2.3 mg/dL (1.6-3.0); PHOSPHOROUS 3.6 mg/dL (2.5-4.6); PROTEIN TOTAL SERUM 6.4 g/dL (6.0-8.3); URIC ACID 9.8 mg/dL (2.6-7.2)
[2016-09-11 05:18] LABS: HEMATOCRIT 21.8 % (38.0-50.0); HEMOGLOBIN 7.1 gm/dL (13.0-16.0); MEAN CELL VOLUME 92.3 FL (83-96); MEAN CORPUSCULAR HEMOGLOBIN 30.2 PG (28-34); MEAN CORPUSCULAR HGB CONC 32.7 g/dL (30-36); MEAN PLATELET VOLUME 7.6 FL (6.5-11.5); RED BLOOD COUNT 2.36 X10e (3.90-5.60); RED CELL DISTRIBUTION WIDTH 19.6 % (11.0-15.5); WHITE BLOOD COUNT 2.9 X10e3 (4.0-10.5)
[2016-09-11 06:44] LABS: BUN/CREATININE RATIO 23.33; CALCIUM SERUM 7.6 mg/dL (8.4-10.2); CREATININE SERUM 1.5 mg/dL (0.6-1.4); GLOM FILT RATE Estimated 47.2 mL/min (>60); POTASSIUM 3.4 mmol/L (3.5-5.1)
[2016-09-12 06:32] LABS: HEMATOCRIT 30.3 % (38.0-50.0); MEAN CELL VOLUME 89.6 FL (83-96); MEAN CORPUSCULAR HGB CONC 33.4 g/dL (30-36); MEAN PLATELET VOLUME 7.1 FL (6.5-11.5); RED BLOOD COUNT 3.38 X10e (3.90-5.60); RED CELL DISTRIBUTION WIDTH 18.5 % (11.0-15.5); WHITE BLOOD COUNT 4.3 X10e3 (4.0-10.5)
[2016-09-12 06:38] LABS: HEMOGLOBIN 10.1 gm/dL (13.0-16.0)
[2016-09-12 07:23] LABS: CREATININE SERUM 1.4 mg/dL (0.6-1.4); GLOM FILT RATE Estimated 51.3 mL/min (>60); PHOSPHOROUS 2.1 mg/dL (2.5-4.6); POTASSIUM 3.3 mmol/L (3.5-5.1)
[2016-09-13 05:22] LABS: HEMATOCRIT 28.4 % (38.0-50.0); HEMOGLOBIN 9.3 gm/dL (13.0-16.0); MEAN CELL VOLUME 89.3 FL (83-96); MEAN CORPUSCULAR HEMOGLOBIN 29.3 PG (28-34); MEAN CORPUSCULAR HGB CONC 32.9 g/dL (30-36); MEAN PLATELET VOLUME 7.3 FL (6.5-11.5); RED BLOOD COUNT 3.18 X10e (3.90-5.60); RED CELL DISTRIBUTION WIDTH 19.1 % (11.0-15.5); WHITE BLOOD COUNT 2.7 X10e3 (4.0-10.5)
[2016-09-13 07:08] LABS: ALBUMIN SERUM 2.9 g/dL (3.5-5.0); BILIRUBIN,TOTAL 1.3 mg/dL (0.2-2.0); BUN/CREATININE RATIO 14.37; CALCIUM SERUM 7.7 mg/dL (8.4-10.2); CREATININE SERUM 1.6 mg/dL (0.6-1.4); GLOM FILT RATE Estimated 43.6 mL/min (>60); MAGNESIUM 2.1 mg/dL (1.6-3.0); PHOSPHOROUS 2.2 mg/dL (2.5-4.6); POTASSIUM 3.9 mmol/L (3.5-5.1); PROTEIN TOTAL SERUM 5.5 g/dL (6.0-8.3)
== END 2016-09-14 11:59 | DRG 853 ==
LOC: CED 09:32 → C2A 15:50 → CED 17:57 → C2A 17:57
PROVIDERS: Emergency Medicine; Internal Medicine; Internal Medicine Hematology; Internal Medicine Hematology & Oncology; Internal Medicine Nephrology; Nurse Practitioner Family; Radiology Diagnostic Radiology
PROC: 3E03305 Introduction of Other Antineoplastic into Peripheral Vein, Percutaneous Approach (ICD-10-PCS; principal; 2016-09-09)
PROC: 07B Lymphatic and Hemic Systems, Excision (ICD-10-PCS; 2016-09-09)
PROC: 30233N1 Transfusion of Nonautologous Red Blood Cells into Peripheral Vein, Percutaneous Approach (ICD-10-PCS; 2016-09-09)
DX: A41.9 Sepsis, unspecified organism (principal); G92 Toxic encephalopathy; N17.9 Acute kidney failure, unspecified; C79.51 Secondary malignant neoplasm of bone; D61.818 Other pancytopenia; I11.0 Hypertensive heart disease with heart failure; C77.9 Secondary and unspecified malignant neoplasm of lymph node, unspecified; E44.0 Moderate protein-calorie malnutrition; I50.32 Chronic diastolic (congestive) heart failure; E83.39 Other disorders of phosphorus metabolism; E87.2 Acidosis; N39.0 Urinary tract infection, site not specified; C61 Malignant neoplasm of prostate; M19.90 Unspecified osteoarthritis, unspecified site; Z91.81 History of falling; D50.8 Other iron deficiency anemias; R33.9 Retention of urine, unspecified; E87.6 Hypokalemia; Z51.5 Encounter for palliative care
CPT/HCPCS: 36415; 71260; 72100; 74177; 77012; 80048; 80053; 81003; 82378; 82550; 82607; 82728; 82947; 83036; 83540; 83550; 83605; 83735; 84100; 84132; 84300; 84550; 85025; 85027; 85610; 85730; 86850; 86900; 86901; 86923; 87040; 87086; 88305; 88341; 88342; 89190; 93005; 96374; 97163; 97167; 97530; 99285; G0103; G8978-GP; G8979-GP; G8987-GO; G8988-GO; G8989-GO; J0696; J1170; J1650; J1815; J1940; J2250; J2270; J2430; J3010; J9155; P9016; Q9967